=== PATIENT | male | born 1960 | race African-American/Black ===

== ENCOUNTER 2018-06-17 12:03 | Emergency (ER) | payer OTHER, SELFPAY ==
[~2018-06-17] VITALS: Ht 188 cm; Wt 113.0 kg
[2018-06-17 13:22] VITALS: BP 165/92
== END 2018-06-17 13:26 | disposition home or self-care (01) ==
LOC: ER 12:03
DX: H69.82 Other specified disorders of Eustachian tube, left ear (principal); E11.9 Type 2 diabetes mellitus without complications; E78.00 Pure hypercholesterolemia, unspecified; Z95.1 Presence of aortocoronary bypass graft
CPT/HCPCS: 99282